=== PATIENT | male | born 1990 | race Caucasian/White ===

== ENCOUNTER 2017-06-12 01:52 | Emergency (ER) | payer SELFPAY ==
[~2017-06-12] VITALS: Ht 170.2 cm; Wt 77.8 kg
[2017-06-12 01:56] VITALS: Ht 170.2 cm; Wt 77.8 kg
[2017-06-12] MEDS ORDERED: HYDROCODONE/APAP (10/325) TAB PO ONE (03:00)
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
[2017-06-12] MEDS ORDERED: IBUP800T25 PO (05:13)
[2017-06-12] MEDS ORDERED: HYDR-906 PO (05:13)
[2017-06-12] MEDS ORDERED: CYCL-319 PO (05:14)
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
[2017-06-12 05:42] VITALS: BP 129/78; PULSE 67; RESP 17; TEMP 97
== END 2017-06-12 05:43 | disposition home or self-care (01) ==
LOC: FTE 01:52
DX: S20.319A Abrasion of unspecified front wall of thorax, initial encounter (principal); F17.210 Nicotine dependence, cigarettes, uncomplicated; R07.9 Chest pain, unspecified; V89.2XXD Person injured in unspecified motor-vehicle accident, traffic, subsequent encounter
CPT/HCPCS: 71020; 73000; 73030